=== PATIENT | male | born 1970 | race Caucasian/White ===

== ENCOUNTER 2022-07-05 09:30 | Emergency (ER) | payer BC, OTHER ==
[2022-07-05 10:17] VITALS: BP 161/98; PULSE 99; RESP 18; TEMP 99.5; BMI 25.0
[2022-07-05] MEDS ORDERED: DEXAMETHASONE SOD PHOSPHATE 10 MG/1 ML VIAL PO ONE (10:48)
[2022-07-05] MEDS ORDERED: DEXAMETHASONE SOD PHOSPHATE 10 MG/1 ML VIAL ONE (11:16)
== END 2022-07-05 11:26 | disposition home or self-care (01) ==
LOC: JCOVINFU 09:30
DX: J09.X2 Influenza due to identified novel influenza A virus with other respiratory manifestations (principal); R05.1 Acute cough; R09.81 Nasal congestion
CPT/HCPCS: 0241U-QW; 99283-25; J1100

== ENCOUNTER 2022-09-28 23:13 | Emergency (ER) | payer BC ==
[2022-09-28 23:17] VITALS: BP 151/90; PULSE 76; RESP 18; TEMP 97.6; BMI 25.0
[2022-09-28] MEDS ORDERED: ALBUTEROL SO4 2.5/IPRATROPIUM 0.5 INH SOL 3 ML VIAL.NEB. NEB ONE (23:36)
[2022-09-28] MEDS ORDERED: DEXAMETHASONE SOD PHOSPHATE 10 MG/1 ML VIAL IVPUSH ONE (23:45)
[2022-09-28] MEDS: ALBUTEROL SO4 2.5/IPRATROPIUM 0.5 INH SOL 3 ML VIAL.NEB. NEB SCH (23:45)
[2022-09-28] MEDS ORDERED: DEXAMETHASONE SOD PHOSPHATE 10 MG/1 ML VIAL ONE (23:50)
[2022-09-29] MEDS ORDERED: ALBUTEROL SO4 HFA INHALER IH ONE ×2 (01:45→01:57)
[2022-09-29] MEDS: ALBUTEROL SO4 2.5/IPRATROPIUM 0.5 INH SOL 3 ML VIAL.NEB. NEB SCH ×2 (01:45)
== END 2022-09-29 02:10 | disposition home or self-care (01) ==
LOC: JER 23:13
PROC: 3E0F7GC Introduction of Other Therapeutic Substance into Respiratory Tract, Via Natural or Artificial Opening (ICD-10-PCS; principal; 2022-09-28)
PROC: 3E033GC Introduction of Other Therapeutic Substance into Peripheral Vein, Percutaneous Approach (ICD-10-PCS; 2022-09-28)
DX: J45.901 Unspecified asthma with (acute) exacerbation (principal); Z20.822 Contact with and (suspected) exposure to COVID-19
CPT/HCPCS: 0241U-QW; 71046-TC-FY; 93005; 93010; 99284-25; J1100

== ENCOUNTER 2022-11-26 21:57 | Inpatient (IN) | payer BC ==
[2022-11-26] MEDS ORDERED: ALBUTEROL SO4 2.5/IPRATROPIUM 0.5 INH SOL 3 ML VIAL.NEB. NEB ONE ×2 (22:05→23:16)
[2022-11-26] MEDS ORDERED: DEXAMETHASONE SOD PHOSPHATE 10 MG/1 ML VIAL IVPUSH ONE (22:10)
[2022-11-26] MEDS: ALBUTEROL SO4 2.5/IPRATROPIUM 0.5 INH SOL 3 ML VIAL.NEB. NEB SCH ×3 (22:17→23:21)
[2022-11-26] MEDS ORDERED: DEXAMETHASONE SOD PHOSPHATE 10 MG/1 ML VIAL ONE (22:19)
[2022-11-26 22:30] LABS: BASO % 0.6 % (0-2.0); HEMATOCRIT 40.6 % (35.4-49); HEMOGLOBIN 13.8 GM/dL (11.7-16.9); LYMPH % 36.8 % (8-40); MCH 31.5 pg (25.7-33.7); MEAN CELL VOLUME 92.7 fl (80-96); MEAN PLT VOLUME 7.2 fl (7.5-11.1); MONO % 8.3 % (3.8-10.2); NEUT % 44.3 % (42.8-82.8); PLATELET COUNT 263 10^3/uL (134-434); RBC 4.38 M/mm3 (4.00-5.60); RDW 13.3 % (11.9-15.9); WHITE BLOOD COUNT 9.5 K/mm3 (4.0-10.0)
[2022-11-26 22:31] LABS: VENOUS BASE EXCESS -2.2 mmol/L (-2-2); VENOUS O2 SATURATION 43.5 % (70-80); VENOUS PCO2 54.6 mmHg (38-52); VENOUS PH 7.285 (7.310-7.410)
[2022-11-26 22:50] LABS: POTASSIUM 3.6 mmol/L (3.5-5.1)
[2022-11-26 22:53] LABS: ALBUMIN 3.8 g/dl (3.4-5.0); BLOOD UREA NITROGEN 16.2 mg/dL (7-18)
[2022-11-26 22:56] LABS: PHOSPHOROUS 3.8 mg/dL (2.5-4.9)
[2022-11-26 22:58] LABS: TOT PROT 7.6 g/dl (6.4-8.2)
[2022-11-26 22:59] LABS: BILIRUBIN,TOTAL 0.3 mg/dL (0.2-1)
[2022-11-26] MEDS ORDERED: PSEUDOEPHEDRINE HCL 30 MG TABLET PO ONE (23:10)
[2022-11-26] MEDS ORDERED: ALBUTEROL SO4 HFA INHALER IH ONE ×2 (23:10→23:16)
[2022-11-26] MEDS ORDERED: PSEUDOEPHEDRINE HCL 60 MG TABLET ONE (23:16)
[2022-11-27] MEDS ORDERED: ACETAMINOPHEN 325 MG TABLET (FP) PO PRN (00:22)
[2022-11-27] MEDS ORDERED: ALBUTEROL SO4 HFA INHALER IH PRN (00:22)
[2022-11-27] MEDS ORDERED: MONTELUKAST NA 5 MG TAB.CHEW PO SCH ×2 (00:26→13:25)
[2022-11-27] MEDS ORDERED: MONTELUKAST NA 10 MG TABLET ONE (00:53)
[2022-11-27 04:12] VITALS: BMI 26.3
[2022-11-27] MEDS: ALBUTEROL SO4 2.5/IPRATROPIUM 0.5 INH SOL 3 ML VIAL.NEB. NEB SCH ×4 (08:05→19:42)
[2022-11-27 08:06] LABS: HEMATOCRIT 39.2 % (35.4-49); HEMOGLOBIN 13.6 GM/dL (11.7-16.9); MCHC 34.7 g/dl (32.0-35.9); MEAN PLT VOLUME 7.3 fl (7.5-11.1); PLATELET COUNT 260 10^3/uL (134-434); RBC 4.26 M/mm3 (4.00-5.60); RDW 13.1 % (11.9-15.9); WHITE BLOOD COUNT 5.3 K/mm3 (4.0-10.0)
[2022-11-27 08:14] LABS: POTASSIUM 4.4 mmol/L (3.5-5.1)
[2022-11-27 08:16] LABS: CALCIUM 9.1 mg/dL (8.5-10.1)
[2022-11-27 08:18] LABS: BLOOD UREA NITROGEN 12.9 mg/dL (7-18); MAGNESIUM 1.9 mg/dL (1.8-2.4)
[2022-11-27 08:20] LABS: CREATININE 0.8 mg/dL (0.55-1.3)
[2022-11-27] MEDS: methylPREDNISolone NA SUCC 125 MG/2 ML VIAL IVPUSH SCH ×2 (09:05→17:40)
[2022-11-27] MEDS: ESCITALOPRAM OXALATE 20 MG TABLET PO SCH (09:05)
[2022-11-27] MEDS: BUDESONIDE/FORMETEROL FUMARATE 80/4.5 mcg INHALER IH SCH ×2 (09:06→21:46)
[2022-11-27] MEDS: MONTELUKAST NA 10 MG TABLET PO SCH (21:46)
[2022-11-28] MEDS: methylPREDNISolone NA SUCC 125 MG/2 ML VIAL IVPUSH SCH ×2 (02:35→09:04)
[2022-11-28 08:08] LABS: POTASSIUM 4.2 mmol/L (3.5-5.1)
[2022-11-28 08:15] LABS: ALBUMIN 3.6 g/dl (3.4-5.0); BLOOD UREA NITROGEN 13.7 mg/dL (7-18); CALCIUM 9.2 mg/dL (8.5-10.1); MAGNESIUM 2.1 mg/dL (1.8-2.4)
[2022-11-28 08:16] LABS: CREATININE 0.7 mg/dL (0.55-1.3); PHOSPHOROUS 3.1 mg/dL (2.5-4.9)
[2022-11-28 08:18] LABS: BILIRUBIN,TOTAL 0.5 mg/dL (0.2-1); TOT PROT 7.1 g/dl (6.4-8.2)
[2022-11-28 08:22] LABS: HEMATOCRIT 39.7 % (35.4-49); HEMOGLOBIN 13.8 GM/dL (11.7-16.9); MCHC 34.7 g/dl (32.0-35.9); MEAN CELL VOLUME 92.3 fl (80-96); MEAN PLT VOLUME 7.8 fl (7.5-11.1); PLATELET COUNT 269 10^3/uL (134-434); WHITE BLOOD COUNT 12.7 K/mm3 (4.0-10.0)
[2022-11-28] MEDS: BUDESONIDE/FORMETEROL FUMARATE 80/4.5 mcg INHALER IH SCH ×2 (09:03→22:38)
[2022-11-28] MEDS: ESCITALOPRAM OXALATE 20 MG TABLET PO SCH (09:04)
[2022-11-28] MEDS: ALBUTEROL SO4 2.5/IPRATROPIUM 0.5 INH SOL 3 ML VIAL.NEB. NEB SCH ×4 (09:15→20:47)
[2022-11-28] MEDS: methylPREDNISolone NA SUCC 40 MG/1 ML VIAL IVPUSH SCH ×2 (09:43→18:42)
[2022-11-28 15:13] LABS: URINE APPEARANCE CLEAR; URINE BILIRUBIN NEGATIVE (NEGATIVE); URINE COLOR YELLOW; URINE GLUCOSE (UA) NEGATIVE (NEGATIVE); URINE KETONE NEGATIVE (NEGATIVE); URINE LEUK ESTERASE NEGATIVE (NEGATIVE); URINE NITRITE NEGATIVE (NEGATIVE); URINE PROTEIN NEGATIVE (NEGATIVE); URINE UROBILINOGEN 0.2 mg/dL (0.2-1.0)
[2022-11-28] MEDS: MONTELUKAST NA 10 MG TABLET PO SCH (21:42)
[2022-11-28] MEDS ORDERED: ALBUTEROL SO4 HFA INHALER IH PRN (22:48)
[2022-11-28] MEDS ORDERED: ACETAMINOPHEN 325 MG TABLET (FP) PO PRN (22:48)
[2022-11-29] MEDS ORDERED: methylPREDNISolone NA SUCC 40 MG/1 ML VIAL IVPUSH SCH (02:00)
[2022-11-29] MEDS: ALBUTEROL SO4 2.5/IPRATROPIUM 0.5 INH SOL 3 ML VIAL.NEB. NEB SCH ×2 (07:20→11:24)
[2022-11-29 09:51] VITALS: PULSE 79
[2022-11-29] MEDS ORDERED: predniSONE 20 MG TABLET (UD) PO SCH (10:00)
[2022-11-29] MEDS ORDERED: ENOXAPARIN NA (PORCINE) 40 MG/0.4 ML DISP.SYRIN SQ SCH (10:00)
[2022-11-29] MEDS ORDERED: ESCITALOPRAM OXALATE 20 MG TABLET PO SCH (10:00)
[2022-11-29] MEDS ORDERED: BUDESONIDE/FORMETEROL FUMARATE 80/4.5 mcg INHALER IH SCH (10:00)
[2022-11-29] MEDS ORDERED: ESCITALOPRAM OXALATE 10 MG TABLET ONE (10:32)
[2022-11-29 12:50] VITALS: BP 119/78; RESP 18; TEMP 97.9
[2022-11-29] MEDS ORDERED: MONTELUKAST NA 10 MG TABLET PO SCH (22:00)
== END 2022-11-29 14:14 | disposition home or self-care (01) | DRG 202 ==
LOC: JER 21:57 → JERBED 23:55 → J4W 11-27 03:36 → OBSVTOIN 11-27 09:49 → J6S 11-28 17:36 → UNDODISIN 11-28 19:08
PROVIDERS: ADMIT Internal Medicine; ATTEND Internal Medicine
DX: J45.51 Severe persistent asthma with (acute) exacerbation (principal); J96.01 Acute respiratory failure with hypoxia; J82.83 Eosinophilic asthma; K21.9 Gastro-esophageal reflux disease without esophagitis; G47.30 Sleep apnea, unspecified; F17.210 Nicotine dependence, cigarettes, uncomplicated; F12.10 Cannabis abuse, uncomplicated
CPT/HCPCS: 0241U-QW; 36415; 71045-TC-FY; 80048; 80053; 81003; 82803; 83735; 84100; 84484; 85025; 85027; 93005; 93010; 94640; 94761; 99285-25; G0378; J1100

== ENCOUNTER 2024-03-01 03:02 | Emergency (ER) | payer BC ==
[2024-03-01 03:13] VITALS: BP 143/96; PULSE 83; RESP 22; TEMP 97.9; BMI 26.2
[2024-03-01] MEDS ORDERED: ALBUTEROL SO4 2.5/IPRATROPIUM 0.5 INH SOL 3 ML VIAL.NEB. NEB ONE (03:59)
[2024-03-01] MEDS ORDERED: DEXAMETHASONE SOD PHOSPHATE 10 MG/1 ML VIAL ONE (03:59)
[2024-03-01] MEDS: DEXAMETHASONE SOD PHOSPHATE 10 MG/1 ML VIAL IM ONE (04:06)
[2024-03-01] MEDS: ALBUTEROL SO4 2.5/IPRATROPIUM 0.5 INH SOL 3 ML VIAL.NEB. NEB SCH (04:06)
== END 2024-03-01 05:05 | disposition home or self-care (01) ==
LOC: JER 03:02
PROC: 3E023GC Introduction of Other Therapeutic Substance into Muscle, Percutaneous Approach (ICD-10-PCS; principal; 2024-03-01)
PROC: 3E0F7GC Introduction of Other Therapeutic Substance into Respiratory Tract, Via Natural or Artificial Opening (ICD-10-PCS; 2024-03-01)
DX: R06.02 Shortness of breath (principal); J45.901 Unspecified asthma with (acute) exacerbation; F17.210 Nicotine dependence, cigarettes, uncomplicated
CPT/HCPCS: 99284-25; J1100

== ENCOUNTER 2024-05-04 05:07 | Emergency (ER) | payer BC ==
[2024-05-04] MEDS ORDERED: ALBUTEROL SO4 2.5/IPRATROPIUM 0.5 INH SOL 3 ML VIAL.NEB. NEB ONE ×2 (05:10→07:18)
[2024-05-04] MEDS: ALBUTEROL SO4 2.5/IPRATROPIUM 0.5 INH SOL 3 ML VIAL.NEB. NEB SCH (05:10)
[2024-05-04] MEDS ORDERED: DEXAMETHASONE SOD PHOSPHATE 10 MG/1 ML VIAL ONE (05:15)
[2024-05-04] MEDS ORDERED: MAGNESIUM 1GM/D5W - 1 GM/100 ML IVPB IVPB ONE (05:15)
[2024-05-04] MEDS ORDERED: methylPREDNISolone NA SUCC 125 MG/2 ML VIAL ONE (05:15)
[2024-05-04 05:16] VITALS: BMI 25.0
[2024-05-04] MEDS: methylPREDNISolone NA SUCC 125 MG/2 ML VIAL IVPUSH ONE (05:21)
[2024-05-04] MEDS: MAGNESIUM 1GM/D5W - 1 GM/100 ML IVPB IVPB ONE (05:21)
[2024-05-04 05:56] LABS: VENOUS BASE EXCESS -2.1 mmol/L (-2-2); VENOUS O2 SATURATION 80.9 % (70-80); VENOUS PCO2 57.1 mmHg (38-52); VENOUS PH 7.275 (7.310-7.410)
[2024-05-04 06:04] LABS: HEMATOCRIT 44.6 % (35.4-49); MCH 32.9 pg (25.7-33.7); MCHC 33.7 g/dl (32.0-35.9); MEAN CELL VOLUME 97.6 fl (80-96); MEAN PLT VOLUME 7.5 fl (7.5-11.1); PLATELET COUNT 302 10^3/uL (134-434); RBC 4.57 M/mm3 (4.00-5.60); RDW 12.7 % (11.9-15.9); WHITE BLOOD COUNT 8.6 K/mm3 (4.0-10.0)
[2024-05-04 06:39] LABS: POTASSIUM 4.1 mmol/L (3.5-5.1)
[2024-05-04 06:42] LABS: ALBUMIN 4.3 g/dl (3.4-5.0); BLOOD UREA NITROGEN 14.4 mg/dL (7-18); CALCIUM 8.7 mg/dL (8.5-10.1)
[2024-05-04 06:45] LABS: CREATININE 0.9 mg/dL (0.55-1.3)
[2024-05-04 06:46] LABS: BILIRUBIN,TOTAL 0.2 mg/dL (0.2-1); TOT PROT 7.4 g/dl (6.4-8.2)
[2024-05-04 07:48] VITALS: BP 113/79; PULSE 73; RESP 20; TEMP 97.6
[2024-05-04 09:37] LABS: ANISOCYTOSIS 0; HELMET CELLS 0; HOWELL-JOLLY BODIES 0; MACROCYTOSIS 0; OVALOCYTE 0; ROULEAU 0; SICKELED CELLS 0; TARGET CELLS 0; TEAR DROP CELLS 0; TOXIC GRANULATION 0
== END 2024-05-04 08:00 | disposition home or self-care (01) ==
LOC: JER 05:07
PROC: 3E033GC Introduction of Other Therapeutic Substance into Peripheral Vein, Percutaneous Approach (ICD-10-PCS; principal; 2024-05-04)
PROC: 3E0F7GC Introduction of Other Therapeutic Substance into Respiratory Tract, Via Natural or Artificial Opening (ICD-10-PCS; 2024-05-04)
DX: J45.909 Unspecified asthma, uncomplicated (principal); R06.02 Shortness of breath
CPT/HCPCS: 0241U-QW; 36415; 71045-TC-FY; 80053; 82803; 85025; 93005; 93010; 99285-25

== ENCOUNTER 2024-05-06 17:22 | Emergency (ER) | payer BC ==
[2024-05-06 17:29] VITALS: BP 133/86; PULSE 78; RESP 16; TEMP 97.6; BMI 25.2
[2024-05-06] MEDS ORDERED: LIDOCAINE HCL/PF 1% SDV 5ML VIAL ONE (18:47)
[2024-05-06] MEDS: LIDOCAINE HCL 1%, 10 MG/ML (50 mL VIAL) SQ ONE (19:02)
[2024-05-06] MEDS ORDERED: SULFAMETHOXAZOLE/TRIMETHOPRIM 800MG/160MG D.S. TABLET ONE (19:04)
[2024-05-06] MEDS: SULFAMETHOXAZOLE/TRIMETHOPRIM 800MG/160MG D.S. TABLET PO ONE (19:06)
== END 2024-05-06 19:22 | disposition home or self-care (01) ==
LOC: JERFT 17:22
DX: H60.01 Abscess of right external ear (principal); H92.01 Otalgia, right ear
CPT/HCPCS: 99283-25

== ENCOUNTER 2024-05-18 18:04 | Emergency (ER) | payer BC ==
[2024-05-18 18:09] VITALS: TEMP 97.7; BMI 25.0
[2024-05-18] MEDS ORDERED: ALBUTEROL SO4 2.5/IPRATROPIUM 0.5 INH SOL 3 ML VIAL.NEB. NEB ONE (18:32)
[2024-05-18] MEDS: ALBUTEROL SO4 2.5/IPRATROPIUM 0.5 INH SOL 3 ML VIAL.NEB. NEB SCH (18:45)
[2024-05-18] MEDS ORDERED: DEXAMETHASONE SOD PHOSPHATE 10 MG/1 ML VIAL ONE (18:46)
[2024-05-18] MEDS: DEXAMETHASONE 4 MG TABLET (FP) PO ONE (18:49)
[2024-05-18 20:04] VITALS: BP 126/72; PULSE 75; RESP 20
== END 2024-05-18 20:46 | disposition home or self-care (01) ==
LOC: JER 18:04
PROC: 3E0F7GC Introduction of Other Therapeutic Substance into Respiratory Tract, Via Natural or Artificial Opening (ICD-10-PCS; principal; 2024-05-18)
DX: J45.901 Unspecified asthma with (acute) exacerbation (principal); R05.9 Cough, unspecified; R06.02 Shortness of breath
CPT/HCPCS: 93005; 93010; 99283-25

== ENCOUNTER 2024-07-27 07:09 | Emergency (ER) | payer BC ==
[2024-07-27 07:14] VITALS: BP 137/88; PULSE 78; RESP 18; TEMP 98.4; BMI 25.8
[2024-07-27] MEDS ORDERED: ACETAMINOPHEN 500 MG TABLET (FP) ONE (07:52)
[2024-07-27] MEDS ORDERED: ALBUTEROL SO4 2.5/IPRATROPIUM 0.5 INH SOL 3 ML VIAL.NEB. NEB ONE (07:52)
[2024-07-27] MEDS: ACETAMINOPHEN 500 MG TABLET (FP) PO ONE (08:00)
[2024-07-27] MEDS: ALBUTEROL SO4 2.5/IPRATROPIUM 0.5 INH SOL 3 ML VIAL.NEB. NEB ONE (08:00)
== END 2024-07-27 09:29 | disposition home or self-care (01) ==
LOC: JER 07:09
PROC: 3E0F7GC Introduction of Other Therapeutic Substance into Respiratory Tract, Via Natural or Artificial Opening (ICD-10-PCS; principal; 2024-07-27)
DX: R06.02 Shortness of breath (principal); R05.9 Cough, unspecified; B97.4 Respiratory syncytial virus as the cause of diseases classified elsewhere; Z20.822 Contact with and (suspected) exposure to COVID-19
CPT/HCPCS: 0241U-QW; 71046-TC-FY; 93005; 93010; 99285-25